=== PATIENT | male | born 1965 | race Caucasian/White ===

== ENCOUNTER 2024-03-28 08:24 | Inpatient (IN) | payer OTHER, SELFPAY ==
[2024-03-28] VITALS (31 sets, daily range): BP systolic 48–153; BP diastolic 27–104; PULSE 54–76; BMI 34.0; BMI 33.3
[2024-03-28 06:22] LABS: % Basophils 0.3 % (0-2); % Eosinophils 0.2 % (0-6); % Immature Granulocytes 0.3 % (0-0.5); % Lymphocytes 9.2 % (20.5-51.1); % Monocytes 5.7 % (1.7-9.3); % Neutrophils 84.3 % (42.2-75.2); Absolute Lymphocytes 1.2 10^3/uL (1.2-3.4); Absolute Monocytes 0.7 10^3/uL (0.1-0.6); Absolute Neutrophils 10.6 10^3/uL (1.4-6.5); Hemoglobin 12.6 g/dL (13.0-18.0); Mean Corp Hgb Conc. 33.2 g/dL (33.0-37.0); Mean Corpuscular Hgb 30.9 pg (27.0-31.0); Mean Corpuscular Volume 93.1 fL (80.0-94.0); Mean Platelet Volume 9.4 fL (7.4-10.4); Nucleated Red Blood Cells % 0 % (-); Platelet Count 200 10^3/uL (130-400); Red Blood Cell Count 4.08 10^6/uL (4.70-6.10); Red Cell Dist. Width 13.3 % (11.5-14.5); White Blood Cell Count 12.6 10^3/uL (4.8-10.8)
--- NOTE | 2024-03-28 06:41 | ED.GENMED ---
History of Present Illness
General
Chief Complaint: Chest Pain
Source: patient, spouse and ambulance crew
Time Seen by Provider: 03/28/24 06:08
History of Present Illness
History of Present Illness:
This a 58-year-old male who presents with chest pain. Pain began 1 PM yesterday. He states he had severe shortness of breath and tightness in his chest all through the night. He now feels better and the pain is down to a 2 after given
nitroglycerin by EMS. The patient took 2 full aspirin at home. Patient states he has never had pain like this before. Start feel little weak yesterday but then the chest pain started. No palpitations. No syncope. Patient does state he was
vomiting at home.
Past History
Past History
ED Past Medical History: HTN
ED Past Surgical History: Tonsilectomy
Social History
Personal:
Living: with family
Employment: Employed
Phy Exam
Physical Exam
Physical Exam:
CONSTITUTIONAL Patient alert and oriented to person, place and time. ill-appearing. Vital signs reviewed.
HEAD atraumatic, normocephalic.
EYES eyelids normal to inspection, Extraocular muscles intact, Conjunctiva normal, Sclera normal.
NECK normal range of motion, Trachea midline, no jugular venous distention.
RESPIRATORY CHEST No respiratory distress noted, Chest expansion equal, Bilateral breath sounds clear.
CARDIOVASCULAR regular rate and rhythm, Heart sounds normal.
BACK normal inspection, no obvious deformities
UPPER EXTREMITY range of motion normal, Motor strength normal, no cyanosis, no edema.
LOWER EXTREMITY range of motion normal, Motor strength normal, no cyanosis, no edema.
NEURO Speech normal, No focal motor deficits, Lynda coma scale 15, Memory normal, Cranial Nerves intact to screening exam.
SKIN skin slightly pale slightly diaphoretic
Scores
Heart Score for Chest Pain Patients
STEMI patient?: Yes
Course
Orders/Labs/Results
Orders:
Orders
03/28/24 05:45
Electrocardiogram (*1) Urgent
Reason for Study: Chest Pain
03/28/24 05:46
EKG- Treatment ONCE
03/28/24 05:54
Complete Blood Count/With Diff Urgent
Comprehensive Metabolic Panel Routine
Magnesium Routine
Troponin I Urgent
03/28/24 06:17
EKG [Electrocardiogram (*1)] Urgent
Reason for Study: Bradycardia / Tachycardia
EKG- Treatment ONCE
03/28/24 06:23
Nitroglycerin 100 mg/250 ml [Nitroglycerin Premix] 100 mg in 250 ml IV NOW
Initial dose in mcg/min, then titrate:: 5
Titrate to keep:: SBP < 160 mmHg
Titrate by mcg/min:: 5 mcg/min, may increase by 10 mcg/min if dose > 20 mcg/min
Frequency of titrations (minutes):: every 3-5 minutes
Maximum dose in mcg/min:: 200
Begin to taper infusion when:: Remained at goal for 2hrs
Taper by mcg/min:: 5 mcg/min
Frequency of taper (minutes) if patient maintains goal:: 30
Taper to off?: Yes
If infusion off & no longer maintaining goal:: Contact Provider
03/28/24 06:25
Heparin 4,000 units IV NOW STA
Pharmacy Request to Place See Dose Instructions PO NOW STA
Discontinue all Active Warfarin orders?: Yes
Nursing to Place Non Medication Order As Directed
Physician Order: PTT 6 hours after initial start of Heparin infusion
Above order entered?: Yes
03/28/24 06:30
Heparin 09310 Units/250 ml 25,000 units in 250 ml IV PER PROTOCOL
Weight to be used for heparin protocol in kilograms (kg):: 110.5
Protocol:: Cardiac Tx/Acute Coronary
PTT Goal Range to be used:: PTT 73 to 111 seconds
Order type:: Initial
INITIAL Infusion Dose (UNITS/KG/hr) & then follow protocol:: 12 units/kg/hr
Infusion Dose in UNITS/hr & then follow protocol (UNITS/hr):: 1,000
INFUSION RATE in mL/hr & then follow protocol (mL/hr):: 10
PTT less than or equal to 64 seconds:: Increase rate by 200 units/hr (+ 2 mL/hr)
PTT 64.1 to 72.9 seconds:: Increase rate by 100 units/hr (+ 1 mL/hr)
PTT 73 to 111 seconds:: Target Range. No change in rate.
PTT 111.1 to 130.9 seconds:: Decrease rate by 100 units/hr (- 1 mL/hr)
PTT 131 to 199.9 seconds:: HOLD for 1 hr. Then decrease rate by 200 units/hr (- 2 mL/hr)
PTT greater than or equal to 200 seconds:: HOLD for 2 hrs & Notify Provider. Then decrease by 200 units/hr (-
2 mL/hr)
Lab follow-up:: Each change, PTT q6h until 2 consecutive are therapeutic. Then PTT
daily.
03/28/24 06:35
EKG [Electrocardiogram (*1)] Urgent
Reason for Study: Chest Pain
EKG- Treatment ONCE
03/28/24 06:42
Verapamil Injectable [Isoptin/Verapamil Injection] 5 mg .ROUTE .STK-MED ONE
03/28/24 06:43
Fentanyl Citrate/Pf [Sublimaze] 100 mcg .ROUTE .STK-MED ONE
Heparin 10,000 units .ROUTE .STK-MED ONE
Heparin 1000 Units/500 ml [Heparin] 1,000 units in 500 ml .ROUTE .STK-MED
Heparin Sodium,Porcine/Ns/Pf [Heparin 2000 Units/1000 ml] 2,000 unit in 1,000 ml .ROUTE .STK-MED
Lidocaine HCl/Pf [Xylocaine-Mpf 1% Vial] 50 mg .ROUTE .STK-MED ONE
Midazolam HCl [Versed] 2 mg .ROUTE .STK-MED ONE
Nitroglycerin [Tridil] 1,500 mcg .ROUTE .STK-MED ONE
03/28/24 06:45
Heparin 59424 Units/250 ml 25,000 units in 250 ml IV PER PROTOCOL
Weight to be used for heparin protocol in kilograms (kg):: 110.5
Protocol:: Cardiac Tx/Acute Coronary
PTT Goal Range to be used:: PTT 73 to 111 seconds
Order type:: Initial
INITIAL Infusion Dose (UNITS/KG/hr) & then follow protocol:: 12 units/kg/hr
Infusion Dose in UNITS/hr & then follow protocol (UNITS/hr):: 1,000
INFUSION RATE in mL/hr & then follow protocol (mL/hr):: 10
PTT less than or equal to 64 seconds:: Increase rate by 200 units/hr (+ 2 mL/hr)
PTT 64.1 to 72.9 seconds:: Increase rate by 100 units/hr (+ 1 mL/hr)
PTT 73 to 111 seconds:: Target Range. No change in rate.
PTT 111.1 to 130.9 seconds:: Decrease rate by 100 units/hr (- 1 mL/hr)
PTT 131 to 199.9 seconds:: HOLD for 1 hr. Then decrease rate by 200 units/hr (- 2 mL/hr)
PTT greater than or equal to 200 seconds:: HOLD for 2 hrs & Notify Provider. Then decrease by 200 units/hr (-
2 mL/hr)
Lab follow-up:: Each change, PTT q6h until 2 consecutive are therapeutic. Then PTT
daily.
03/28/24 07:[address] See Dose Instructions IV DIRECTED
03/28/24 07:07
DOPamine 400 MG/D5W 250 ML [DOPamine 400 MG] 400 mg in 250 ml .ROUTE .STK-MED
03/28/24 07:22
Heparin 5,000 units .ROUTE .STK-MED ONE
Ticagrelor [Brilinta] 180 mg .ROUTE .STK-MED ONE
03/28/24 07:43
Ondansetron Injectable [Zofran] 4 mg .ROUTE .STK-MED ONE
03/28/24 08:06
Heparin 1000 Units/500 ml [Heparin] 1,000 units in 500 ml .ROUTE .STK-MED
03/28/24 08:07
Admit Patient As Directed
Co-Sign Provider:
Level of Care: Inpatient admission
Assign to:: ICU
Physician / Group: breanna/Yary
Diagnosis: Inferior STEMI
Reason for Hospitalization: STEMI
Expected length of stay greater than two midnights?: Yes
ELOS- Estimated Length of Stay in days: 3
I certify the patient meets the requirements for IP care: Yes
Echo 2D MMode Color/Doppler Urgent
Reason for Study: STEMI
Comment: breanna
Electrocardiogram (*1) Urgent
Reason for Study: Other
Other Reason for Exam: s/p intervention
Comment: breanna
Code Status As Directed
Resuscitation Status: Full Code
CARDIAC REHAB CONSULT Routine
Co-Sign Provider:
Type of Cardiac Rehab Referral: Outpatient
Diagnosis: STEMI
Date of Diagnosis/Surgery: 03/28/24
Referring Provider: Other Provider
Other Referring Provider: Dr. Pringle
Acetaminophen [Tylenol] 650 mg PO Q4HPRN PRN
Circular Shear Operator Procedure As Directed
Cardiac Cath Procedure: percutaneous coronary intervention
Intake/ Output As Directed
Frequency: Per unit guidelines
Notify MD As Directed
Notify physician if: immediately for chest pain or bleeding from access site(s)
Site Checks As Directed
Check access site for bleeding/hematoma: Yes
Comment: on arrival, Q15min x4, Q30min x2, Q1 hr x2, Q2 hr x2, Q4 hr or per
protocol
Vascular Checks As Directed
Location: distal to access site - pulse check
Frequency: Other
Comment: on arrival, Q15min x4, Q30min x2, Q1 hr x2, Q2 hr x2, Q4 hr or per protocol
Vital Signs As Directed
Frequency: Other
Additional Instructions:: on arrival, Q15min x4, Q30min x2, Q1 hr x2, Q2 hr x2, then Q4 hr or per unit
protocol
PRN Pain Medication Management As Directed
May give lesser potent ordered pain med per pt: Yes
preference::
Protocol:: Medication orders for pain may be administered in a
manner that supports deferring to patient preference
when the pt is:
- Requesting an ordered lesser potent pain medication.
Least to most potent pain medications are defined
as: acetaminophen < NSAID < tramadol < opioids
(morphine, oxycodone, hydromorphone).
- Requesting a lesser dose of the same medication IF
ORDERED.
- Requesting a less intrusive route of administration
if both routes are prescribed by the provider (PO <
IV).
03/28/24 08:08
DX Deep Vein Thrombosis Video Routine
03/28/24 08:09
Activity As Directed
Activity Level: Bedrest
Comment: refer to hemostasis device used for bedrest duration, then ambulate ad jessica
Radial Artery Hemostasis Method As Directed
Instructions:: 3 mL out at 2 hour posts placement of band
3 mL out at 2 1/2 hours post placement of band
3 mL out at 3 hours post placement of band
Off at 3 1/2 hours post placement of band
If any oozing or hemotoma occurs:: re-inflate band and call provider
03/28/24 08:14
Case Management Consult ONCE
Case Management Consult: Discharge Planning
Comment: cost brilinta
Venous Sheath As Directed
Comment: ACT on arrival, then q1hr until < 170, then remove sheath if HR stable >60
03/28/24 08:15
0.9% Sodium Chloride 1000 ml [Nss] 1,000 ml IV PER PROTOCOL
Infusion rate in mL/kg/hr:: 1.5
Infusion rate in mL/hr:: 250
Duration of infusion (hours):: 4
DOPamine 400 MG/D5W 250 ML [DOPamine 400 MG] 400 mg in 250 ml IV PER PROTOCOL
Initial dose in mcg/kg/min, then titrate:: 2.5
Titrate to keep:: Heart Rate
Keep Heart Rate (bpm) greater than:: 60
Titrate by mcg/kg/min:: 1-2 mcg/kg/min
Frequency of titrations (minutes):: 15
Maximum dose in ICU in mcg/kg/min:: 20
Maximum dose in IMU in mcg/kg/min:: 10
Begin to taper infusion when:: Remained at goal for 4hrs
Taper by mcg/kg/min:: 1-2 mcg/kg/min
Frequency of taper (minutes) if patient maintains goal:: 30
Taper to off?: Yes
If infusion off & no longer maintaining goal:: Contact Provider
03/28/24 09:00
0.9% Sodium Chloride 500 ml [Nss] 500 ml MCKAYLA SHEATH 30 mls/hr
03/28/24 09:04
PTT Urgent
Comment: Obtain baseline before beginning heparin infusion if not already collected
Prothrombin Time Urgent
Is patient on Coumadin/Warfarin?: Unknown
Comment: ADD ON
03/28/24 Lunch
Cholesterol Lowering
At Your Request: Full Participation
Cholesterol Lowering: Sodium, 2 Gram
03/28/24 11:59
Troponin I Q8H
03/28/24 18:00
Atorvastatin [Lipitor] 80 mg PO QPM
Enoxaparin Sodium [Lovenox] 40 mg SC QPM
03/28/24 20:00
Troponin I Q8H
Ticagrelor [Brilinta] 90 mg PO BID
03/29/24 04:00
Troponin I Q8H
03/29/24 06:00
Electrocardiogram (*1) IN AM
Reason for Study: Other
Other Reason for Exam: s/p intervention
Comment: cbc
Cardiovascular Evaluation IN AM
Complete Blood Count/No Diff IN AM
Comprehensive Metabolic Panel IN AM
Glycohemoglobin (HgbA1c) Routine
03/29/24 08:00
Aspirin Chewable [Low Strength Aspirin] 81 mg PO DAILY
Valsartan [Diovan] 160 mg PO DAILY
03/30/24 06:00
Complete Blood Count/No Diff IN AM
Comprehensive Metabolic Panel IN AM
03/31/24 06:00
Complete Blood Count/No Diff IN AM
Comprehensive Metabolic Panel IN AM
Abnormal Lab Results
03/28/24
05:54
WBC 12.6 H 10^3/uL
(4.8-10.8)
RBC 4.08 L 10^6/uL
(4.70-6.10)
Hgb 12.6 L g/dL
(13.0-18.0)
Hct 38.0 L %
(39.0-52.0)
Absolute Neuts (auto) 10.6 H 10^3/uL
(1.4-6.5)
Absolute Monos (auto) 0.7 H 10^3/uL
(0.1-0.6)
Neutrophils % 84.3 H %
(42.2-75.2)
Lymphocytes % 9.2 L %
(20.5-51.1)
BUN 22 H mg/dl
(9-20)
Glucose 125 H mg/dl
(70-99)
AST 94 H U/L
(17-59)
Troponin I 7.660 H* ng/ml
Total Protein 6.0 L g/dl
(6.3-8.2)
03/28/24 05:54
03/28/24 05:54
Vital Signs
Initial and Last Documented VS:
Initial Vital Signs
Pulse Resp
71 12
03/28/24 05:50 03/28/24 05:50
Last Documented Vital Signs
Temp Pulse Resp BP Pulse Ox
97.6 F 69 13 112/71 89
03/28/24 11:00 03/28/24 13:00 03/28/24 13:00 03/28/24 13:00 03/28/24 13:00
MDM/Problems Addressed
MDM/Problems Addressed:
Acute ST elevation UT, delayed presentation. Second-degree heart block
*Pulse Oximetry
Patient hypoxic: no
*EKG
Interpreted by ED Provider?: Yes
Interpretation: abnormal
Rate: bradycardiac
Rhythm: other (Secondary heart block)
Ischemia: ST elevation
*Security Flex Utility Officer Interpretation
Rate: normal
Interpretation: normal
Rhythm: sinus
*Critical Care Note
Total Time (30-74mins, 75-104mins- exclusive of procedures): 30 minutes
Data Reviewed
Source: patient, family and ambulance crew
Patient Management
Discussion with other providers: Chemistry Laboratory Technician (Cardiology)
Escalation/DeEscalation of care consider admission/obs:
58-year-old male presents with chest pain. Initial EKG was wide-complex without any old 1 for comparison. Initial plan was to treat as unstable angina but repeat EKG shows second-degree heart block with ST elevation in inferior leads with Q waves
in leads III and aVF. Suspect he started with an UT yesterday 1 PM. Delayed presentation. Considered bolus of nitroglycerin but given suspected RV extension of the infarction, hold off. Given heparin, aspirin, Brilinta, low-dose nitroglycerin.
Seen at bedside by interventional cardiology
ED Attending Note
-
Portions of this chart may have been created with voice recognition software.� Occasional wrong word or��sound alike� substitutions may have occurred due to the inherent limitations of voice recognition software.
Discharge Plan
Departure
Patient Disposition: Admit
Date of Disposition: 03/28/24
Time of Disposition: 06:41
Admit to: [facility]
Presentation/result/management discussed w/ accepting MD/DO: Hospitalist
Discharge Problem:
ST elevation (STEMI) myocardial infarction
Interventions
Interventions:
*Risk Screen - Suicide Last Done: 03/28/24 05:57
*General Assessment Last Done: 03/28/24 05:57
*Neglect/Abuse Screening Last Done: 03/28/24 05:57
ED- Fall Risk Assessment Last Done: 03/28/24 05:57
*ED COVID-19 Vaccine History Last Done: 03/28/24 05:57
*Nursing Disposition Last Done: 03/28/24 06:38
ED- Cardiac Assessment Last Done: 03/28/24 05:57
Discharge Date and Time
Discharge Date/Time: 03/28/24 06:38
[2024-03-28 07:04] LABS: ALT (SGPT) 28 U/L (0-50); AST (SGOT) 94 U/L (17-59); Albumin 3.8 g/dl (3.5-5.0); Alkaline Phosphatase 75 U/L (38-126); Blood Urea Nitrogen 22 mg/dl (9-20); Calcium 9.4 mg/dl (8.4-10.2); Carbon Dioxide 22 mmol/L (22-30); Chloride 106 mmol/L (98-107); Estimated Creatinine Clearance 102 ml/min; Glucose 125 mg/dl (70-99); Potassium 4.3 mmol/L (3.5-5.1); Sodium 142 mmol/L (135-145); Total Bilirubin 0.7 mg/dl (0.2-1.3); eGFR > 60.00
--- NOTE | 2024-03-28 07:51 | HPS.HSE ---
Addendum entered and electronically signed by García Pringle MD 03/29/24 14:19:
Patient seen and examined. I agree with the note from Cintia Mcgovern with the following additions:
Mr. Sutton is a 58 year old man with HTN and GERD who presented with inferior STEMI approximately 12 hours after initial onset of chst pain. Pain started at 3 PM day prior to admission and worsened overnight, associated with dry heaves. He took ASA
325 and called EMS ~6 AM and was found to have inferior STEMI pattern. In the ED, ECGs notable for AIVR and later 2:[address]. Initial troponin 7. He was taken emergently to the cardiac labeler where he underwent successful
PCI to the RCA with overlapping DESx2 with excellent result. TTE reviewed and demonstrated mildly reduced EF with inferior RWMAs. Telemetry post-cath notable for sinus rhythm with atrial rate ~80 and complete heart block with reliable junctional
escape at ~70 bpm and occasional PVCs. Recommend standard post-STEMI care with DAPTx12 months w/ ASA/ticagrelor. Will resume home valsartan. Consider conversion to Entresto and addition of dapagliflozin pending insurance coverage. Given reliable
junctional escape no need for TVP or chronotropic drugs at this point. Will monitor for improvement for at least 1 week prior to considering pacemaker.
Critical care time: 40 minutes, not including time spent performing any separately billed procedures.
Original Note:
Family Physician
-
Family Physician: Christopher Basilio
Chief Complaint
-
Inferior STEMI
History of Present Illness
58 yo WM h/o HTN, GERD who developed chest pain yesterday around 3pm, he was up all night with dry heaves and 6/10 CP. He took 325mg ASA and called EMS. EKG with AIVR then 2:[address]ations. He was given Heparin, ASA, Brilinta and
brought urgently to the labeler.
Medical History
Past Medical History
Past Medical History: Reports GERD and HTN
Past Surgical History: Reports Orthopedic and Tonsilectomy
Social History
Tobacco: Non-smoker
Alcohol: Occasional
Drug: None
Personal:
Living: With Family
Family History
Family History: Not pertinent
Allergies / Home Medications
Allergies reflects when Allergies were last updated in [facility].
Home Medications with original date entered in [facility]
Allergy/Medication List:
Allergies
Allergy/AdvReac Type Severity Reaction Status Date / Time
Penicillins Allergy Unknown Verified 04/14/21 16:37
�Medication �Instructions �Recorded �Confirmed �Type
lansoprazole 30 mg capsule,delayed 30 mg PO DAILY 05/30/14 03/28/24 History
release (Prevacid)
valsartan 320 mg tablet 320 mg PO DAILY 03/28/24 03/28/24 History
Review of Systems
-
Cardiac: Reports Chest Pain (08/25 on arrival to labeler)
Abdomen/GI: Reports Nausea
Physical Exam
Vital Signs
Vital Signs
Temp Pulse Resp BP Pulse Ox
98.5 F 53 15 112/59 100
03/28/24 05:57 03/28/24 06:01 03/28/24 06:01 03/28/24 06:06 03/28/24 06:07
Physical Exam
General: Pain (deferred as being prepped and draped on labeler table)
Laboratory Results
-
03/28/24 05:54
03/28/24 05:54
Laboratory Results
Total Bilirubin 0.7 mg/dl (0.2-1.3) 03/28/24 05:54
AST 94 U/L (17-59) H 03/28/24 05:54
ALT 28 U/L (0-50) 03/28/24 05:54
Alkaline Phosphatase 75 U/L (38-126) 03/28/24 05:54
Troponin I 7.660 ng/ml H* 03/28/24 05:54
Data Reviewed
-
Medical Tests (Nuc Med, Echo, EKG etc): Report Reviewed by me
Impression/Plan
-
Primary care physician: Alexandra Basilio, DO
Primary wet process assistant head miller: Km Pringle MD (new to pt)
IMPRESSION/PLAN:
#Late presentation inferior STEMI - Post PCI mid RCA x 2 MERLY, first troponin 7.66 trend to peak
Check Echo today
DAPT ASA/Brilinta (CM to eval cost)
Check CVE, initiate high intensity statin
Hold BB with heart block, restart low dose valsartan as bp allows
cardiac rehab c/s
f/u cbc at d/c 2-4 weeks
#2:1 Heart block - transient, temp wire placement during procedure, removed
wean dopamine, remove venous sheath when ACT <170 and HR remains above 60 SR
Hold BB for now
#HTN - monitor trends, will resume valsartan as bp allows
#GERD - continue PPI
Condition guarded, this condition is a threat to life
continue to monitor on tele closely
[2024-03-28] MEDS: NSS 500 VEN SHEATH (09:27)
[2024-03-28 10:21] LABS: APTT > 200 Sec (23.4-35.0)
[2024-03-28 10:32] LABS: INR 1.18; PT 14.9 Sec (11.4-14.6)
--- NOTE | 2024-03-28 12:40 | CON.INTV ---
Consultation
Consultation Request
Date/Time Consultation Requested: 03/28/2024
Date/Time Consultation Performed: 03/28/2024
Requesting Provider: Dr. Pringle
Performing Provider: Dr. Cesar Haynes
Reason for Consultation: Acute myocardial infarction
Medical History
-
History of Present Illness:
58-year-old man with history of hypertension, hypercholesterolemia, GERD who developed acute onset chest pain the day prior admission in the afternoon, same night developed nausea and vomiting with chest pain.
Patient took aspirin and came to the emergency room. Patient found to have AV block with ST elevations on EKG. Emergently transferred to the [facility]. Underwent cardiac catheterization RCA stents x 2 were placed.
Transferred to the critical care unit for further care. Patient continues to have bradycardia arrhythmias. Denies any chest pain or shortness of breath. He is in bed. Denies any nausea or vomiting. Denies abdominal pain.
He does report prior history of his snoring. Has never been evaluated for sleep apnea.
He does not follow-up with doctors regularly.
He does not smoke cigarettes
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
Past Medical History
Past Medical History: Other (See assessment and plan)
Social History
Tobacco: Non-smoker
Alcohol: Occasional
Drug: None
Living: With Family
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
Family History
Family History: Reviewed & Not Pertinent
Allergies / Home Medications
Allergies
Allergy/AdvReac Type Severity Reaction Status Date / Time
Penicillins Allergy Unknown Verified 04/14/21 16:37
Home Medications
�Medication �Instructions �Recorded �Confirmed �Last Taken �Type
lansoprazole 30 mg capsule,delayed 30 mg PO DAILY Gastrointestinal 05/30/14 03/28/24 Unknown History
release (Prevacid) Issue
valsartan 320 mg tablet 320 mg PO DAILY Blood Pressure 03/28/24 03/28/24 Unknown History
Review of Systems
-
History Source: Patient
All other systems: Negative unless noted
Vitals / Labs / Diagnostic Testing
Vital Signs
Temp Pulse Resp BP Pulse Ox
97.6 F 78 20 133/63 97
03/28/24 11:00 03/28/24 12:30 03/28/24 12:30 03/28/24 12:00 03/28/24 12:30
Lab Data
03/28/24 05:54
03/28/24 05:54
Laboratory Results
03/28/24 03/28/24 03/28/24
09:04 09:04 09:04
PT 14.9 H Cancelled
INR 1.18 Cancelled
APTT > 200 H*
Diagnostic Testing:
Physical Exam
-
HEENT: Normocephalic
Cardiovascular: S1/S2
Respiratory: Clear and Non-Labored Respirations
GI: Soft and Non Distended
Neurology: Awake, Oriented and AO x 3
Skin: Warm
General: Comfortable
Assessment
-
Acute ST elevation myocardial infarction-status post RCA stenting x 2 03/28/2024
Peak troponin 35
Chest x-ray 03/28/2024: No acute abnormality
AV block 2: 1 on admission. Temporary pacer was placed.
Ongoing bradycardia arrhythmias/conduction abnormalities
-
Conditions present prior admission:
Hypertension
Obesity
Assessment and plan:
Patient is critically ill status post ST elevation myocardial infarction. Status post stent placement.
Chest pain-free at this moment. Denies shortness of breath.
Currently resting in bed
Continues to have bradycardia arrhythmias-so far denies any significant symptoms.
Continue dopamine drip per cardiology-heart rate currently 55-60. Blood pressure acceptable
Echocardiogram will be performed later today
Continue with goal-directed therapies, antiplatelets for
Monitor for bleeding
Groin access in place-defer to cardiology.
-
Continue antihypertensive, if blood pressure allows.
-
Patient snores sleep apnea possibility. Information will be left in the chart for evaluation in the outpatient setting.
-
Bedrest until cardiology clears
Continue ICU monitoring for now.
-
Critical care statement: A total of 32 minutes of critical care time was provided for this patient today. This includes management of unstable vital signs, evaluation of the patient at bedside, reviewing the patient's pertinent medical records
including ventilator settings, arterial blood gases, radiographs, microbiology, laboratory evaluations and discussion with primary team, critical care nursing, and respiratory therapy.
--- NOTE | 2024-03-28 12:57 | PTCARENOTE ---
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 Access was attempted in right wrist without success, R wrist dressing of 2X2, tegaderm CDI. Access successful via Right fem artery, closed with angioseal. Femoral vein sheath placed on left
for transvenous pacing. Pacer removed prior to ICU admission with venous sheath remaining. Dressing with small-mod amount serosanguineous drainage. Pt now pain free. Remained flat for 2 hrs, now at 30deg. Tolerating diet. HR initially sinus edel vs
junctional rhythm. Now pt appears to be in a SR with PVCs. BP WNL. Dopamine gtt infusing as ordered. NSS through venous sheath. Serial trop continues to elevate. Family at bedside.
--- NOTE | 2024-03-28 14:59 | ITS.CL.PN ---
Product Development Carpenter - Procedure Note
Procedure
Procedure Note:
CARDIAC CATHETERIZATION REPORT
Date of Procedure: 03/28/2024
Referring: Dr. Aquiles Chen
Indication: inferior STEMI
PROCEDURE:
1. Left heart catheterization
2. Coronary angiography
3. Temporary venous pacemaker
4. PCI with MERLY for acute GA
5. IVUS
ACCESS:
6 [place] right femoral artery (radial artery access abandoned due to inability to pass the radial access wire through the forearm)
6 [place] right femoral vein
CATHETERS:
1. 6 [place] JL4 diagnostic
2. 6 [place] RJ4 guide
HEMODYNAMIC DATA
LV 118/18 (EDP 24) mmHg
AO 112/61 (mean 81) mmHg
CORONARY ANGIOGRAPHY
Dominance: right
LM: large, normal
LCx: diminutive vessel that gives rise to a single marginal branch
LAD: Large vessel giving rise to a large D1 and moderate-caliber D2. There is a 30% stenosis in the mid-LAD just after D1 and otherwise luminal irregularities.
RCA: large hyperdominant vessel giving rise to a small caliber RPDA and several RPL brnaches. There is a 95% hazy stenosis in the proximal RCA and diffuse plaque extending distally in the mid-RCA. The distal branch vessels are small and have diffuse
non-critical disease.
Temporary Venous Pacemaker
Given progressive bradycardia with hypotension, a 6F temporary venous pacemaker was placed from the right femoral vein with capture verified. The pacemaker was set to a rate of 80 bpm with improvement in hemodynamics.
INTERVENTIONS - IVUS-guided PCI of the mid-distal RCA for acute GA with DESx2
The RCA was engaged with a 6F JR4 guide catheter and a Runthrough coronary wire placed in the distal RPAV. Initial lesion preparation was performed with a 2.0 balloon with improvement in distal flow. IVUS was performed demonstrating a 3.5 mm distal
reference diameter and 4.5 mm proximal reference diameter, with diffuse >50% plaque extending ~50 mm from the proximal to distal RCA. Stenting was performed with overlapping 3.5x38 and 3.5x23 mm Xience Skypoint MERLY to nominal pressure. Post-dilation
was performed with a 4.0x20 mm Euphora NC balloon from distal to proximal (sparing the distal edge) taken to high pressure, followed by a 4.5x12 Euphora NC balloon at the proximal edge taken to high pressure. IVUS was repeated and demonstrated
excellent stent expansion and apposition without evidence of dissection. Final angiographic result was excellent. The wire and guide were removed. REGIONAL SALES EXECUTIVE arteriotomy was confirmed with hand injection angiography. The femoral access site was closed with
a Angioseal x1. The TVP was removed and the sheath left in place to allow for future temporary venous pacing if needed. The patient was taken to recovery in stable condition.
Closure Device: 6F Angioseal
Radiation dose (mGy): 1388
DAP (cm2.Gy): 96.44
Fluoroscopy time (minutes): 16.2
CONCLUSIONS:
1. STEMI with culprit 95% thrombotic lesion in the proximal RCA with sucessful IVUS-guided PCI with placement of overlapping 3.5x38 and 3.5x23 mm MERLY post-dilated distally to 4.0 mm and proximally to 4.5 mm with an NC balloon to high pressure.
2. Elevated LV filling pressure and no aortic stenosis.
3. Sucessful placement of a TVP via the right groin with RV pacing to support hemodynamics. Pacing wire removed at end of case
RECOMMENDATIONS:
1. Expectant management after cardiac catheterization via right femoral approach.
2. DAPT with ASA/Ticagrelor for 1 year.
3. High intensity statin for goal LDL<55.
4. GDMT for GA and mildly reduced ejection fraction: continue home valsartan, lee check for Entresto and convert if affordable; SGLT2i to start tomorrow; consideration of beta elmira prior to discharge if no evidence of conduction abnormalities.
5. Cardiac rehab
6. Will pull femoral venous line if rhythm stable
Copy to: Christopher Basilio (PCP)
Signed: García Pringle MD, PhD
[2024-03-28] MEDS: LOVENOX 40 MG SC (18:09)
[2024-03-28] MEDS: LIPITOR 80 MG PO (18:09)
--- NOTE | 2024-03-28 18:13 | PTCARENOTE ---
Pakois removed by Dr. Pringle without issue. 4X4 tegaderm CDI
--- NOTE | 2024-03-28 19:45 | PTCARENOTE ---
Assumed care of pt at 1900. Pt is A/O x4, pleasant and cooperative with care. Pt no longer on bedrest, was able to ambulate to bathroom independently at start of shift. No c/o pain. R groin site C/D/I, neurovascular checks WNL. Pt currently in a 3rd
degree heart block on monitor but rate currently in 70s. Remains off Dopamine at this time. See nursing shift assessment flowsheet and post-cath flowsheet for futher assessment details. Call soto and personal items within reach.
[2024-03-28] MEDS: BRILINTA 90 MG PO (20:13)
[2024-03-29] VITALS (19 sets, daily range): BP systolic 108–176; BP diastolic 59–122; PULSE 48–75; BMI 33.8
--- NOTE | 2024-03-29 00:54 | PTCARENOTE ---
Physical assessment and neurovascular assessment unchanged. Pt's HR dropping to mid 50s while asleep, Dopamine restarted at 2.5mcg/kg/min, pt's rhythm on monitor looks unchanged from previous although monitor is reading it as AFib. HR currently in
60s. Pt placed on 2LNC due to desatting as low as 79% while asleep, now SpO2 94-96%.
--- NOTE | 2024-03-29 04:48 | PTCARENOTE ---
Physical assessment and neurovascular assessment unchanged. Pt remains on Dopamine, now at 7mcg/kg/min, HR anywhere from low 50s to 80s, but mainly 55-65. Rhythm unchanged from previous, and occasional PVCs noted. Pt also noted to have frequent
periods of apnea which seem to correspond to when his HR is the lowest, and when he finally does take a deep breath his HR will simultaneously increase. Remains on 2LNC.
[2024-03-29 04:53] LABS: Hematocrit 36.1 % (39.0-52.0); Hemoglobin 12.2 g/dL (13.0-18.0); Mean Corp Hgb Conc. 33.8 g/dL (33.0-37.0); Mean Corpuscular Hgb 30.6 pg (27.0-31.0); Mean Corpuscular Volume 90.5 fL (80.0-94.0); Mean Platelet Volume 9.6 fL (7.4-10.4); Platelet Count 216 10^3/uL (130-400); Red Blood Cell Count 3.99 10^6/uL (4.70-6.10); Red Cell Dist. Width 13.1 % (11.5-14.5)
[2024-03-29 05:42] LABS: ALT (SGPT) 54 U/L (0-50); AST (SGOT) 207 U/L (17-59); Albumin 4.1 g/dl (3.5-5.0); Alkaline Phosphatase 76 U/L (38-126); Blood Urea Nitrogen 25 mg/dl (9-20); Calcium 9.8 mg/dl (8.4-10.2); Carbon Dioxide 25 mmol/L (22-30); Chloride 105 mmol/L (98-107); Estimated Creatinine Clearance 112 ml/min; Glucose 126 mg/dl (70-99); HDL Cholesterol 57 mg/dl; LDL Cholesterol, Calculated 104 mg/dl; Potassium 4.4 mmol/L (3.5-5.1); Sodium 142 mmol/L (135-145); Total Bilirubin 0.8 mg/dl (0.2-1.3); Total Cholesterol 180 mg/dl (50-199); Total Protein 6.5 g/dl (6.3-8.2); Triglyceride 97 mg/dl (10-149); Very Low Density Lipoprotein 19 mg/dl (0-30); eGFR > 60.00
[2024-03-29] MEDS: DOPamine 400 MG 250 IV (06:25)
[2024-03-29] MEDS: DIOVAN 160 MG PO (07:17)
[2024-03-29] MEDS: LOW STRENGTH ASPIRIN 81 MG PO (07:17)
[2024-03-29] MEDS: BRILINTA 90 MG PO ×2 (07:17→20:13)
--- NOTE | 2024-03-29 08:52 | W.PN.CD ---
Today's Communication / Plan
-
Rhythm appears to have improvement. Patient with marked first-degree AV block on ECG. Telemetry with Mobitz 1 second-degree AV block.
No clear indication for pacing at this time. Continued observation on telemetry
Continue with dual antiplatelet therapy
I reviewed the events of yesterday with the patient. Discussed issues related to [place] and RCA stenting and discussed the importance of long-term medical therapy including dual antiplatelet therapy. Also reviewed issues related to arrhythmias.
Patient is in agreement with being compliant with medical therapy and with treatment plan.
Okay for transfer to IPU
Impression / Plan
-
58-year-old male who presented with acute IMI. Initially appeared to be complete heart block with idioventricular rhythm on presentation. Then also had a narrow complex 2-1 second-degree AV block with evidence of inferior ST elevation. Patient
went emergently to the cardiac Claim Benefit Specialist and had successful stenting of the RCA.
IMI
-Successful RCA stenting 03/28/2022
-Peak troponin 37
-Echocardiogram with mildly reduced left trickle function estimated ejection fraction 45 to 50%
-Aspirin and Brilinta
-High intensity statin
-Continue valsartan
-No beta-elmira due to bradycardia arrhythmias
.
Heart block. Patient initially with third-degree AV block and evidence of 2-1 secondary AV block. Postprocedure patient's heart rate remained stable although he had varying rhythms on telemetry sometimes appeared to have a junctional rhythm with
some A-V dissociation other times appeared to have second-degree AV block. Patient remained asymptomatic
-ECG this morning sinus rhythm with marked first-degree AV block
-Review of telemetry with no long pauses patient appears to have Mobitz 1 second-degree AV block without evidence of third-degree AV block this morning.
-No clear indication for pacing at this time. Will continue to observe on telemetry
.
Hypertension continue current medical therapy.
Physical Exam
Vital Signs/Labs
Vital Signs
Temp Pulse Resp BP Pulse Ox
97.9 F 81 18 176/83 100
03/29/24 07:41 03/29/24 07:30 03/29/24 07:30 03/29/24 07:00 03/29/24 07:15
03/28/24 03/29/24 03/30/24
06:59 06:59 06:59
Actual Weight 110.5 kg 110 kg
03/29/24 04:42
03/29/24 04:42
PT 14.9 Sec (11.4-14.6) H 03/28/24 09:04
PT Cancelled 03/28/24 09:04
INR 1.18 03/28/24 09:04
INR Cancelled 03/28/24 09:04
APTT > 200 Sec (23.4-35.0) H* 03/28/24 09:04
Magnesium 2.0 mg/dl (1.6-2.3) 03/28/24 05:54
Triglycerides 97 mg/dl (10-149) 03/29/24 04:42
LDL Cholesterol, Calc 104 mg/dl 03/29/24 04:42
VLDL Cholesterol, Calc 19 mg/dl (0-30) 03/29/24 04:42
HDL Cholesterol 57 mg/dl 03/29/24 04:42
LAB Results
03/28/24 03/28/24 03/28/24
05:54 11:59 20:27
Troponin I 7.660 H* 35.800 H* D 32.400 H*
03/29/24
04:42
Troponin I 19.300 H*
Physical Exam
Constitutional: No acute distress
Cardiovascular: Rhythm & rate is regular
Respiratory: Respiratory effort normal, Wheeze Absent and Rhonchi Absent
GI: Soft, Non tender and Normal bowel sounds
Neuro/Psych: Alert, Oriented and AO x 3
Other: Skin
Data Reviewed
-
Date of Service: March 29, 2024
--- NOTE | 2024-03-29 10:13 | PTCARENOTE ---
Assumed care of pt at 0700. Pt is A/O x4, pleasant and cooperative with care. Pt no longer on bedrest, was able to ambulate to bathroom independently at start of shift. No c/o pain. R groin site C/D/I, neurovascular checks WNL. Eddy Current Inspector states
Pt in a [place] heart block on monitor with rate currently in 70s. Dopamine off at start of shift. Chest pain free. See nursing shift assessment flowsheet and post-cath flowsheet for futher assessment details. Call soto and personal items within
reach.
[2024-03-29 11:31] LABS: Glycohemoglobin (HgbA1c) 5.5 % (4.0-5.6)
--- NOTE | 2024-03-29 11:48 | W.PN.INTV ---
Today's Communication / Plan
Recommendations
Continue with cardiac management
Eventual obstructive sleep apnea evaluation
Telemetry monitoring
Transfer to IVU
Sign off
Assessment
-
Acute ST elevation myocardial infarction-status post RCA stenting x 2 03/28/2024
Peak troponin 35
Chest x-ray 03/28/2024: No acute abnormality
AV block 2: 1 on admission. Temporary pacer was placed.
Ongoing bradycardia arrhythmias/conduction abnormalities
-
Conditions present prior admission:
Hypertension
Obesity
Assessment and plan:
Overnight bradycardia arrhythmia seems to have improved.
Hemodynamically stable
Chest pain-free
monitoring specialist with Mobitz 1 second-degree AV block.
Cardiology correspondence reviewed: No indication for pacemaker
Echocardiogram: Mildly decreased LVEF. No significant valvular abnormalities. No pericardial effusion.
Continue with cardiac therapy
Eventual cardiac rehabilitation
Lowering cholesterol medications
Discussed with patient lifestyle modification
Patient has been transferred to IV
-
Continue with antihypertensives
-
Patient snores sleep apnea possibility. Information will be left in the chart for evaluation in the outpatient setting.
-
Increase activity per cardiology.
-
No additional recommendation from the critical care perspective.
Sign off
Subjective Dataa
Subjective Data
Date of Service:
Date of Service: March 29, 2024
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
Subjective:
Denies any chest pain
Denies shortness of breath at rest
Denies lightheadedness
Review of Systems
General: Fever (n)
Cardiopulmonary: Dyspnea (n), Dyspnea on Exertion (n), Cough (n) and Lower Extremity Pain (n)
GI: Abdominal Pain (n)
Objective Data
Data Reviewed
Vital Signs / I&O / Oxygen:
Vital Signs
Temp Pulse Resp BP Pulse Ox
97.9 F 68 23 130/77 98
03/29/24 07:41 03/29/24 11:15 03/29/24 09:45 03/29/24 11:11 03/29/24 09:45
Intake and Output
03/28/24 03/29/24 03/30/24
06:59 06:59 06:59
Intake Total 1376.8 / 1413.9 52.1 / 52.1
Output Total 600 / 600
Balance 776.8 / 813.9 52.1 / 52.1
SaO2 98
Nasal Cannula flow liters per 2
minute
Physical Exam
General: Comfortable
HEENT: Normocephalic
Cardiovascular: S1-S2
Respiratory: Clear and Non-Labored Respirations
GI: Soft and Non Distended
Neurology: Awake, Oriented and AO x 3
Labs/Micro/Reports
Lab Data
03/29/24 04:42
03/29/24 04:42
[2024-03-29] MEDS: GLYCERIN SUPPOSITORY ADULT 1 SUPP RECTAL (12:55)
--- NOTE | 2024-03-29 13:16 | PTCARENOTE ---
Assessment unchanged. Pt ambulating in room without issue. Pt c/o constipation. Glycerine suppository ordered and administered by pt.
--- NOTE | 2024-03-29 13:18 | CM ---
CM consult placed for brilinta pricing. Confirmed with Dr. Sony Hennessy that he would like the medication ordered as: 'Brilinta 90mg PO BID' via TT. [facility] art 9am on Sunday. CM called in the prescription and physician's name and
NPI # leaving a message on [facility]'s VM.
Dr. Hennessy made aware of above.
--- NOTE | 2024-03-29 14:52 | PTCARENOTE ---
Report given to LAMBERTO Woods on IVU. Pt escorted to IVU [id number] in wheelchair without issue.
--- NOTE | 2024-03-29 14:58 | PTCARENOTE ---
Received patient from ICU - stable condition. Pt w/o complaints but appears mildly SOB with walking, pt denies.
[2024-03-29] MEDS: LIPITOR 80 MG PO (17:31)
[2024-03-29] MEDS: LOVENOX 40 MG SC (18:14)
--- NOTE | 2024-03-30 01:06 | PTCARENOTE ---
On tele pt appears to flip from type 2 mobitz 1 to mobitz 2. HR 30-50s. Asymptomatic. Minoo made aware and no new orders placed. Call charles w/in reach.
[2024-03-30 03:56] VITALS: BP 128/73
[2024-03-30 03:58] VITALS: BMI 33.5
[2024-03-30 04:46] LABS: Hematocrit 34.7 % (39.0-52.0); Hemoglobin 11.7 g/dL (13.0-18.0); Mean Corp Hgb Conc. 33.7 g/dL (33.0-37.0); Mean Corpuscular Hgb 31.4 pg (27.0-31.0); Mean Platelet Volume 9.8 fL (7.4-10.4); Platelet Count 156 10^3/uL (130-400); Red Blood Cell Count 3.73 10^6/uL (4.70-6.10)
[2024-03-30 05:04] LABS: ALT (SGPT) 49 U/L (0-50); AST (SGOT) 91 U/L (17-59); Albumin 3.6 g/dl (3.5-5.0); Alkaline Phosphatase 74 U/L (38-126); Calcium 9.8 mg/dl (8.4-10.2); Carbon Dioxide 25 mmol/L (22-30); Chloride 106 mmol/L (98-107); Estimated Creatinine Clearance 101 ml/min; Glucose 106 mg/dl (70-99); Potassium 4.4 mmol/L (3.5-5.1); Sodium 138 mmol/L (135-145); Total Protein 5.8 g/dl (6.3-8.2); eGFR > 60.00
[2024-03-30 05:13] LABS: Blood Urea Nitrogen 23 mg/dl (9-20); Total Bilirubin 0.8 mg/dl (0.2-1.3)
[2024-03-30 07:33] VITALS: BP 129/84
[2024-03-30] MEDS: BRILINTA 90 MG PO ×2 (08:12→19:33)
[2024-03-30] MEDS: LOW STRENGTH ASPIRIN 81 MG PO (08:12)
[2024-03-30] MEDS: DIOVAN 160 MG PO (08:12)
[2024-03-30] MEDS: MIRALAX 17 GRAMS PO (08:15)
--- NOTE | 2024-03-30 08:26 | W.PN.CD ---
Today's Communication / Plan
-
Patient currently with sinus rhythm with first-degree AV block periods of asymptomatic bradycardia with 2 to 1-second AV block overnight.
Continue with current medical therapy continue to monitor rhythms closely
Impression / Plan
-
58-year-old male who presented with acute IMI. Initially appeared to be complete heart block with idioventricular rhythm on presentation. Then also had a narrow complex 2-1 second-degree AV block with evidence of inferior ST elevation. Patient
went emergently to the cardiac Tube Knitter and had successful stenting of the RCA.
IMI with associated heart block
-Successful RCA stenting 03/28/2022
-Peak troponin 37
-Echocardiogram with mildly reduced left trickle function estimated ejection fraction 45 to 50%
-Aspirin and Brilinta
-High intensity statin
-Continue valsartan
-No beta-elmira due to bradycardia arrhythmias
.
Heart block. Patient initially with third-degree AV block and evidence of 2-1 secondary AV block. Postprocedure patient's heart rate remained stable although he had varying rhythms on telemetry sometimes appeared to have a junctional rhythm with
some A-V dissociation other times appeared to have second-degree AV block. Patient remained asymptomatic
-ECG this morning sinus rhythm with marked first-degree AV block
-Review of telemetry with no long pauses. Overnight had periods of 2-1 AV block asymptomatic
-No clear indication for pacing at this time. Will continue to observe on telemetry
.
Hypertension continue current medical therapy.
Physical Exam
Vital Signs/Labs
Vital Signs
Temp Pulse Resp BP Pulse Ox
98 F 72 20 129/84 98
03/30/24 07:31 03/30/24 08:12 03/30/24 07:31 03/30/24 08:12 03/30/24 07:31
03/29/24 03/30/24 03/31/24
06:59 06:59 06:59
Actual Weight 110 kg 108.9 kg
03/30/24 04:00
03/30/24 03:59
PT 14.9 Sec (11.4-14.6) H 03/28/24 09:04
PT Cancelled 03/28/24 09:04
INR 1.18 03/28/24 09:04
INR Cancelled 03/28/24 09:04
APTT > 200 Sec (23.4-35.0) H* 03/28/24 09:04
Magnesium 2.0 mg/dl (1.6-2.3) 03/28/24 05:54
Triglycerides 97 mg/dl (10-149) 03/29/24 04:42
LDL Cholesterol, Calc 104 mg/dl 03/29/24 04:42
VLDL Cholesterol, Calc 19 mg/dl (0-30) 03/29/24 04:42
HDL Cholesterol 57 mg/dl 03/29/24 04:42
LAB Results
03/28/24 03/28/24 03/28/24
05:54 11:59 20:27
Troponin I 7.660 H* 35.800 H* D 32.400 H*
03/29/24
04:42
Troponin I 19.300 H*
Physical Exam
Constitutional: No acute distress
Cardiovascular: Rhythm & rate is regular
Respiratory: Respiratory effort normal
GI: Soft
Neuro/Psych: Alert
Other: Cath Site (fine)
Data Reviewed
-
Date of Service: March 30, 2024
Medical Decision Making: Reviewed Test Results
Echo: Report Reviewed by me
X-Ray/CT/US/MRI/NUC/PET: Report Reviewed by me
Medical Tests (PFT, Pathology etc): Report Reviewed by me
--- NOTE | 2024-03-30 09:06 | PTCARENOTE ---
received patient this am, monitor shows NSR with a first degree, obtained morning EKG as ordered. VSS. patient c/o feeling constipated, miralax given as ordered. right groin dsg. removed, groin ecchymotic, no hematoma, distal pulse palpable.
[2024-03-30 11:33] VITALS: BP 136/91
[2024-03-30 15:31] VITALS: BP 146/95
[2024-03-30] MEDS: GLYCERIN SUPPOSITORY ADULT 1 SUPP RECTAL (17:14)
[2024-03-30] MEDS: LIPITOR 80 MG PO (17:14)
[2024-03-30] MEDS: LOVENOX 40 MG SC (17:14)
--- NOTE | 2024-03-30 17:36 | PTCARENOTE ---
patient has not had a BM yet and requested to have something else, Dulcolax sup. given as ordered.
[2024-03-30 19:30] VITALS: BP 152/91
--- NOTE | 2024-03-30 20:54 | PTCARENOTE ---
Rec'd pt at handoff. AOX3 and pleasant. Tele- SR w/ 1st deg HB. HR 60-70s. Assessment completed as documented. See worklist. Pt has no c/o pain/discomfort at this time. Currently in bed; call charles w/in reach.
[2024-03-30 22:28] VITALS: BP 155/95
[2024-03-31 02:11] VITALS: BP 134/99
[2024-03-31 02:44] LABS: % Basophils 0.5 % (0-2); % Eosinophils 2.8 % (0-6); % Immature Granulocytes 0.6 % (0-0.5); % Monocytes 7.7 % (1.7-9.3); % Neutrophils 72.4 % (42.2-75.2); Absolute Eosinophils 0.2 10^3/uL (0-0.7); Absolute Immature Granulocytes 0.1 10^3/uL (0-0.05); Absolute Lymphocytes 1.3 10^3/uL (1.2-3.4); Absolute Monocytes 0.6 10^3/uL (0.1-0.6); Absolute Neutrophils 5.7 10^3/uL (1.4-6.5); Hematocrit 35.8 % (39.0-52.0); Hemoglobin 12.4 g/dL (13.0-18.0); Mean Corp Hgb Conc. 34.6 g/dL (33.0-37.0); Mean Corpuscular Hgb 31.3 pg (27.0-31.0); Mean Corpuscular Volume 90.4 fL (80.0-94.0); Mean Platelet Volume 9.5 fL (7.4-10.4); Nucleated Red Blood Cells % 0 % (-); Platelet Count 172 10^3/uL (130-400); Red Blood Cell Count 3.96 10^6/uL (4.70-6.10); Red Cell Dist. Width 12.5 % (11.5-14.5); White Blood Cell Count 7.9 10^3/uL (4.8-10.8)
[2024-03-31 03:07] LABS: ALT (SGPT) 44 U/L (0-50); AST (SGOT) 54 U/L (17-59); Albumin 3.7 g/dl (3.5-5.0); Alkaline Phosphatase 77 U/L (38-126); Blood Urea Nitrogen 19 mg/dl (9-20); Calcium 9.6 mg/dl (8.4-10.2); Carbon Dioxide 25 mmol/L (22-30); Chloride 103 mmol/L (98-107); Estimated Creatinine Clearance > 125 ml/min; Glucose 105 mg/dl (70-99); Phosphorus 3.1 mg/dl (2.5-4.5); Potassium 4.1 mmol/L (3.5-5.1); Sodium 138 mmol/L (135-145); Total Bilirubin 1.2 mg/dl (0.2-1.3); eGFR > 60.00
[2024-03-31 07:09] VITALS: BP 143/93
[2024-03-31 07:14] VITALS: BMI 32.8
--- NOTE | 2024-03-31 08:19 | W.PN.CD ---
Today's Communication / Plan
-
lee check dapa/entresto; discharge
Impression / Plan
-
58-year-old male who presented with acute IMI. Initially appeared to be complete heart block with idioventricular rhythm on presentation. Then also had a narrow complex 2-1 second-degree AV block with evidence of inferior ST elevation. Patient
went emergently to the cardiac Community Youth Secretary and had successful stenting of the RCA.
IMI with associated heart block
-Successful RCA stenting 03/28/2022
-Peak troponin 37
-Echocardiogram with mildly reduced LV function estimated ejection fraction 45 to 50%
-Aspirin and Brilinta
-High intensity statin
-Continue valsartan, consider entresto based on lee check
-consider dapagliflozin based on lee check
-No beta-elmira due to bradycardia arrhythmias; will initiate as outpatient
Heart block. Patient initially with third-degree AV block and evidence of 2-1 secondary AV block. Postprocedure patient's heart rate remained stable although he had varying rhythms on telemetry sometimes appeared to have a junctional rhythm with
some A-V dissociation other times appeared to have second-degree AV block. Patient remained asymptomatic
-ECG this morning sinus rhythm with marked first-degree AV block
-Review of telemetry with sinus rhythm and no block
Hypertension continue current medical therapy.
Subjective: feeling well without complaints
Physical Exam
Vital Signs/Labs
Vital Signs
Temp Pulse Resp BP Pulse Ox
36.4 C 71 18 134/99 96
03/31/24 07:12 03/31/24 02:30 03/31/24 07:12 03/31/24 02:11 03/31/24 07:12
03/30/24 03/31/24 04/01/24
06:59 06:59 06:59
Actual Weight 108.9 kg 106.5 kg
03/31/24 02:27
03/31/24 02:27
PT 14.9 Sec (11.4-14.6) H 03/28/24 09:04
PT Cancelled 03/28/24 09:04
INR 1.18 03/28/24 09:04
INR Cancelled 03/28/24 09:04
APTT > 200 Sec (23.4-35.0) H* 03/28/24 09:04
Magnesium 2.0 mg/dl (1.6-2.3) 03/28/24 05:54
Triglycerides 97 mg/dl (10-149) 03/29/24 04:42
LDL Cholesterol, Calc 104 mg/dl 03/29/24 04:42
VLDL Cholesterol, Calc 19 mg/dl (0-30) 03/29/24 04:42
HDL Cholesterol 57 mg/dl 03/29/24 04:42
LAB Results
03/28/24 03/28/24 03/29/24
11:59 20:27 04:42
Troponin I 35.800 H* D 32.400 H* 19.300 H*
Physical Exam
Constitutional: No acute distress
Cardiovascular: Rhythm & rate is regular, Pedal edema is absent and JVD pressure is normal
Respiratory: Respiratory effort normal and Lungs clear to auscul.
Neuro/Psych: AO x 3
Data Reviewed
-
Date of Service: March 31, 2024
Medical Decision Making: Reviewed Test Results
EKG: Tracing Personally Visualized and interpreted
Echo: Tracing Personally Visualized and interpreted
X-Ray/CT/US/MRI/NUC/PET: Report Reviewed by me
Labs: Labs Reviewed by me
[2024-03-31] MEDS: BRILINTA 90 MG PO (08:41)
[2024-03-31] MEDS: LOW STRENGTH ASPIRIN 81 MG PO (08:41)
[2024-03-31] MEDS: DIOVAN 160 MG PO (08:41)
--- NOTE | 2024-03-31 09:47 | PTCARENOTE ---
received patient this am sleeping but easily aroused. monitor shows NSR with first degree, VSS. right groin ecchymotic, HERNANDO, distal pulse palpable. patient verbalizes no complaints, is hoping to go home today.
[2024-03-31 11:55] LABS: ACT-LR - POC 266 Seconds (116-155)
[2024-03-31 11:55] LABS: ACT-LR - POC 273 Seconds (116-155)
[2024-03-31 11:55] LABS: ACT-LR - POC 261 Seconds (116-155)
--- NOTE | 2024-03-31 12:26 | CM ---
spoke to pt in room, he is prev indep, lives with his in a 2 story home with no steps to enter. he denies any dme's. attempted to call [facility] to lee meds, they have no perscript plan on record. pts works at [employer] and
pays cost prices. Dr Pringle aware that entresto/farxiga/brilinta would all be approx $550 each a month.
[2024-03-31 12:33] VITALS: BP 151/97
[2024-03-31] MEDS: DIOVAN 40 MG PO (13:52)
[2024-03-31] MEDS: EFFIENT 60 MG PO (13:53)
--- NOTE | 2024-03-31 13:59 | CM ---
effient on good Rx is $13-22 [address] the pt will fill meds. information given.
--- NOTE | 2024-03-31 14:02 | W.DS.TRANS ---
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
-
Discharge Instructions:
Discharge Diagnosis/Procedures STEMI
Angioplasty with stent to RCA x 2
Diet Low Cholesterol
Activity No strenuous activity
Additional Activity See attached instructions
Driving Restrictions No driving for 24 hours
Other Services Cardiac Rehab
Instructions:
Stand-Alone Forms: DC Instructions- Cath/EP Lab
Changes to Home Medications: Yes
Discharge Medications:
DC Medications w/original date entered in [facility]
lansoprazole 30 mg capsule,delayed release (Prevacid) 30 mg PO DAILY Gastrointestinal Issue 05/30/14
aspirin 81 mg chewable tablet 81 mg PO DAILY #30 tabs 03/31/24
atorvastatin 80 mg tablet 80 mg PO QPM #90 tabs 03/31/24
nitroglycerin 0.4 mg sublingual tablet 0.4 mg sublingual [id number] PRN Chest pain #25 tabs 03/31/24
prasugrel 10 mg tablet 10 mg PO DAILY #90 tabs 03/31/24
valsartan 80 mg tablet 240 mg (3 x 80 mg) PO DAILY #90 tabs 03/31/24
Home Medication Changes
New medications: Aspirin, Effient, atorvastatin, nitroglycerin
Valsartan was decreased from 320 mg to 240 mg
Pending Results: No
--- NOTE | 2024-03-31 15:14 | PTCARENOTE ---
D/C instructions given to patient and , both verbalizes understanding. INT D/C'd, telemetry D/C'd, personal belongings packed and sent home with patient. D/C to home via wc accompanied by vol. services.
== END 2024-03-31 15:58 | disposition home or self-care (01) | DRG 322 ==
LOC: IVU 08:24
PROVIDERS: Nurse Practitioner Adult Health; Student in an Organized Health Care Education/Training Program; ADMITTING PHYSICIAN Student in an Organized Health Care Education/Training Program; EMERGENCY PHYSICIAN Emergency Medicine; FAMILY PHYSICIAN Family Medicine; OTHER PHYSICIAN Internal Medicine Critical Care Medicine
PROC: 4A023N7 Measurement of Cardiac Sampling and Pressure, Left Heart, Percutaneous Approach (ICD-10-PCS; 2024-03-28)
PROC: B240ZZ3 Ultrasonography of Single Coronary Artery, Intravascular (ICD-10-PCS; 2024-03-28)
PROC: B2111ZZ Fluoroscopy of Multiple Coronary Arteries using Low Osmolar Contrast (ICD-10-PCS; 2024-03-28)
PROC: 027035Z Dilation of Coronary Artery, One Artery with Two Drug-eluting Intraluminal Devices, Percutaneous Approach (ICD-10-PCS; 2024-03-28)
DX: I21.19 ST elevation (STEMI) myocardial infarction involving other coronary artery of inferior wall (principal); I44.2 Atrioventricular block, complete; E78.00 Pure hypercholesterolemia, unspecified; I10 Essential (primary) hypertension; K21.9 Gastro-esophageal reflux disease without esophagitis; I49.3 Ventricular premature depolarization; R00.1 Bradycardia, unspecified; I95.9 Hypotension, unspecified; E66.9 Obesity, unspecified; Z68.33 Body mass index [BMI] 33.0-33.9, adult; Z59.71 Insufficient health insurance coverage
CPT/HCPCS: 71045; 80053; 80061; 83036; 83735; 84100; 84484; 85025; 85027; 85347; 85610; 85730; 92978; 93005; 93306; 93458; 96374; 96375; 99291; C1725; C1753; C1760; C1874; C1887; C1894; C9606; Q9967